=== PATIENT | male | born 1990 | race Caucasian/White ===

== ENCOUNTER 2020-10-13 18:24 | Emergency (ER) | payer OTHER, MEDICAID, SELFPAY ==
[2020-10-13 18:25] VITALS: BP 182/83; PULSE 119; RESP 15; TEMP 37.1; O2SAT 96; BMI 21.7
--- NOTE | 2020-10-13 18:34 | DI.CT.S_ITS ---
PROCEDURE: CT HEAD/BRAIN WO CON INDICATIONS: fall 1st time seizure with head injury TECHNIQUE: Noncontrast 4.5 mm thick angled axial sections acquired from the foramen magnum to the vertex, with coronal and sagittal reformats. For radiation dose reduction, the following was used: automated exposure control, adjustment of mA and/or kV according to patient size. COMPARISON: None. FINDINGS: Image quality: Excellent. CSF spaces: Basal cisterns are patent. No extra-axial fluid collections. Ventricles are normal in size and shape. Brain: No midline shift. No intracranial masses or hemorrhage. Mcgarry-white matter interface is normal. Skull and face: Small scalp hematoma at the vertex. Calvarium and visualized facial bones are intact, without suspicious lesions. Sinuses: Visualized sinuses and mastoids are clear. IMPRESSION: No acute intracranial abnormality. Small scalp hematoma at the vertex. Dictated by: Solis Hernandez M.D. on 10/13/2020 at 19:13 Approved by: Solis Hernandez M.D. on 10/13/2020 at 19:14
[2020-10-13 18:49] LABS: Add Manual Diff / Slide Review NO; Basophils Absolute Auto 0 /uL (0-100); Basophils Percent Auto 0.9 % (0-2); Eosinophils Absolute Auto 0 /uL (0-450); Hematocrit 41.6 % (41-53); Lymphocytes Absolute Auto 300 /uL (1100-4500); Lymphocytes Percent Auto 5.4 % (25-40); Mean Corpuscular HGB Conc 33.6 % (30-36); Mean Corpuscular Hemoglobin 35.2 PG (26-34); Mean Corpuscular Volume 104.6 fL (80-100); Monocytes Absolute Auto 400 /uL (0-900); Monocytes Percent Auto 7.3 % (3-14); Neutrophils Absolute Auto 4500 /uL (1500-7000); Neutrophils Percent Auto 86.4 % (50-75); Platelet Count 80 X10^3/uL (150-400); Red Blood Cell Count 3.97 X10^6/uL (4.5-5.9); White Blood Cell Count 5.2 X10^3/uL (4.5-11.0)
[2020-10-13] MEDS: SODIUM CHLORIDE 0.9% 1,000 ML 1000 ML IV (18:54)
[2020-10-13 19:01] LABS: Alanine Aminotransferase 312 IU/L (<50); Albumin 5.3 g/dL (3.5-5.0); Albumin Globulin Ratio 1.7 (1.0-2.8); Alkaline Phosphatase 100 U/L (38-126); Aspartate Aminotransferase 532 IU/L (17-59); BUN Creatinine Ratio 9.4 (6-22); Blood Urea Nitrogen 10 mg/dL (9-20); Calcium 9.4 mg/dL (8.4-10.2); Carbon Dioxide 12 mmol/L (22-32); Chloride 100 mmol/L (98-107); Estimated Glomerular Filt Rate > 60.0 mL/min (>60); Ethanol (ETOH) 99 mg/dL; Globulin 3.2 g/dL (1.7-4.1); Glucose 101 mg/dL (70-100); HEMOLYSIS < 15 (0-50); Lipase 229 U/L (23-300); Potassium 3.8 mmol/L (3.4-5.1); Sodium 140 mmol/L (137-145); Total Protein 8.5 g/dL (6.3-8.2)
[2020-10-13 19:17] LABS: Prolactin 24.8 ng/mL (3.7-17.9)
--- NOTE | 2020-10-13 19:28 | ED.SEIZURE ---
HPI - Seizure General Chief Complaint: Seizure Stated Complaint: Seizure Time Seen by Provider: 10/13/20 18:33 Source: family and EMS Mode of arrival: EMS Limitations: no limitations History of Present Illness HPI Narrative: Patient is a 30-year-old male without a history of seizures who is brought to the emergency department by EMS for evaluation of seizure-like activity. Is reported that the patient was at work where he had a seizure. The patient states that he does remember being at work and then having an episode where he blacked out the next thing that he remembers people were standing around him. The time my evaluation he reports no symptoms. Does have a slight headache where he hit his head on the top. No neck pain. No other injuries from the event. Patient states he has never had a seizure in the past. Prior to the seizure never had chest pain or shortness of breath. No belly pain. No recent travel peer Related Data Allergies Allergy/AdvReac Type Severity Reaction Status Date / Time No Known Drug Allergies Allergy Verified 10/13/20 21:18 Review of Systems Constitutional Constitutional: Reports headache(s) Eyes Eyes: Reports system reviewed and no additional complaints, except as documented ENT Ears, Nose, Mouth, and Throat: Reports headache(s) and Denies neck pain Cardiovascular Cardiovascular: Reports system reviewed and no additional complaints, except as documented Respiratory Respiratory: Reports system reviewed and no additional complaints, except as documented Gastrointestinal Gastrointestinal: Reports system reviewed and no additional complaints, except as documented Genitourinary Genitourinary: Reports system reviewed and no additional complaints, except as documented Musculoskeletal Musculoskeletal: Denies back pain and Denies neck pain Integumentary/Breasts Skin/Breast: Reports system reviewed and no additional complaints, except as documented Neurologic Neurologic: Reports headache(s) Psychiatric Psychiatric: Reports system reviewed and no additional complaints, except as documented Endocrine Endocrine: Reports system reviewed and no additional complaints, except as documented Hematologic/Lymphatic On Anticoagulants: No Allergic/Immunologic Allergic/Immunologic: Reports system reviewed and no additional complaints, except as documented Patient History Medical History Healthy adult Social History Smoking Status: Unknown if ever smoked Smoking Status: Unknown if ever smoked alcohol intake frequency: a few times a week Substance Use Type: does not use Exam Initial Vital Signs Initial Vital Signs: Vital Signs Temperature 98.7 F 10/13/20 18:25 Pulse Rate 119 H 10/13/20 18:25 Respiratory Rate 15 10/13/20 18:25 Blood Pressure 182/83 H 10/13/20 18:25 Pulse Oximetry 96 10/13/20 18:25 Const General: cooperative and healthy appearing [facility] Head: contusion (Vertex of head. No active bleeding.) Eyes General: appearance normal, both eyes and all related structures Neck Neck: normal visual inspection Chest Chest: No tenderness Resp Effort & Inspection: normal respiratory effort Auscultation: clear to auscultation bilaterally Cardio Rate: tachycardic Rhythm: regular rhythm GI Inspection: normal to inspection Back/Spine/Pelvis Cervical Spine: No cervical spinal tenderness Skin General: no rashes or lesions noted Neuro General: patient alert, patient awake and moves all extremities Extrem General: normal to inspection and capillary refill normal Psych Appearance: grossly normal and well kempt Scores GCS [place] coma scale eye opening: Spontaneous [place] coma scale verbal response: Orientated [place] coma scale motor response: Obey commands [place] coma scale total score: 15 Course Orders Ordered: ED Orders 10/13/20 18:32 Complete Blood Count AUTO DIFF Stat Comprehensive Metabolic Panel Stat Ethanol (ETOH) Stat Lipase Stat Prolactin Stat 10/13/20 18:34 CT head/brain wo con Stat EKG-12 Lead Stat Discontinued Medications Sodium Chloride (Normal Saline 0.9%) 1,000 mls @ 1,000 mls/hr IV BOLUS ONE Stop: 10/13/20 19:32 Last Infusion: 10/13/20 20:08 Dose: 0 mls/hr Documented by: Admin: 10/13/20 18:54 Dose: 1,000 mls/hr Documented by: RAJ Vital Signs Vital signs: Vital Signs - 8 hr 10/13/20 18:25 10/13/20 20:09 Temperature 98.7 F Pulse Rate 119 H 105 H Respiratory Rate 15 20 Blood Pressure 182/83 H 157/101 H Pulse Oximetry 96 99 MDM - Seizure Lab Data Attestation: I reviewed the patient's lab results. Result diagrams: 10/13/20 18:32 10/13/20 18:32 Labs: Lab Results 10/13/20 10/13/20 Range/Units 18:32 18:32 WBC 5.2 (4.5-11.0) X10^3/uL RBC 3.97 L (4.5-5.9) X10^6/uL Hgb 14.0 (13.5-17.5) g/dL Hct 41.6 (41-53) % MCV 104.6 H (80-100) fL MCH 35.2 H (26-34) PG MCHC 33.6 (30-36) % RDW 13.0 (11.6-14.8) % Plt Count 80 L (150-400) X10^3/uL Neut % (Auto) 86.4 H (50-75) % Lymph % (Auto) 5.4 L (25-40) % [place] % (Auto) 7.3 (3-14) % Eos % (Auto) 0.0 L (2-4) % Baso % (Auto) 0.9 (0-2) % Neut # (Auto) 4500 (5123-3074) /uL Lymph # (Auto) 300 L (7729-3160) /uL [place] # (Auto) 400 (0-900) /uL Eos # (Auto) 0 (0-450) /uL Baso # (Auto) 0 (0-100) /uL Sodium 140 (137-145) mmol/L Potassium 3.8 (3.4-5.1) mmol/L Chloride 100 (98-107) mmol/L Carbon Dioxide 12 L (22-32) mmol/L BUN 10 (9-20) mg/dL Creatinine 1.06 (0.66-1.25) mg/dL Estimated GFR > 60.0 (>60) mL/min BUN/Creatinine Ratio 9.4 (6-22) Glucose 101 H (70-100) mg/dL Calcium 9.4 (8.4-10.2) mg/dL Total Bilirubin 1.0 (0.2-1.3) mg/dL AST 532 H (17-59) IU/L ALT 312 H (<50) IU/L Alkaline Phosphatase 100 (38-126) U/L Total Protein 8.5 H (6.3-8.2) g/dL Albumin 5.3 H (3.5-5.0) g/dL Globulin 3.2 (1.7-4.1) g/dL Albumin/Globulin Ratio 1.7 (1.0-2.8) Lipase 229 (23-300) U/L Prolactin 24.8 H (3.7-17.9) ng/mL Ethyl Alcohol 99 H ( - 10) mg/dL Point of Care Testing Glucose POC [address] scan - head: Radiologist's Impression: [address] [id number] Scan ReportSigned Patient: Remi Rivera GMR#: [id number]: 1990Acct:[id number]/Sex: 30 / MDate of Service: 10/13/20Loc: EDAccession Number: [id number] Procedure: CT head/brain wo con Ordering Provider: Tyrone Bruno D.O. PROCEDURE: CT HEAD/BRAIN WO CON INDICATIONS: fall 1st time seizure with head injury TECHNIQUE: Noncontrast 4.5 mm thick angled axial sections acquired from the foramen magnum to the vertex, with coronal and sagittal reformats. For radiation dose reduction, the following was used: automated exposure control, adjustment of mA and/or kV according to patient size. COMPARISON: None. FINDINGS: Image quality: Excellent. CSF spaces: Basal cisterns are patent. No extra-axial fluid collections. Ventricles are normal in size and shape. Brain: No midline shift. No intracranial masses or hemorrhage. Mcgarry-white matter interface is normal. Skull and face: Small scalp hematoma at the vertex. Calvarium and visualized facial bones are intact, without suspicious lesions. Sinuses: Visualized sinuses and mastoids are clear. IMPRESSION: No acute intracranial abnormality. Small scalp hematoma at the vertex. Dictated by: Solis Hernandez M.D. on 10/13/2020 at 19:13 Approved by: Solis Hernandez M.D. on 10/13/2020 at 19:14 ECG Data Attestation: I personally reviewed and interpreted this ECG as follows: Interpretation: Sinus tachycardia Ventricular rate 111 Normal axis Normal QRS Normal QTC No ST T wave changes MDM Narrative Medical decision making narrative: Patient's head CT is unremarkable. His labs are unremarkable except for an elevated alcohol level. When I confronted the patient about this he stated that he was not drunk. He stated that he is unsure as to why was elevated because he has not drank in over 24 hours. He was no other signs of infection. Have a high suspicion that his seizure today is related to alcohol withdrawal as he was somewhat shaky. Had a discussion with him regarding this. Plan will be is to discharge home. Will hold on any seizure medication. He was instructed that he cannot drive for the next 6 months and until he has been cleared by his primary doctor or a neurologist. We did discuss his alcohol use and how he should try to cut back on the alcohol use as this is most likely the cause of his symptoms today. He expressed understanding and agreement this plan. Discharge Plan Departure Patient Disposition: Home Clinical Impression: Seizure-like activity, Alcohol intoxication Instructions: Alcohol Use Disorder, DI for Seizure (Not Epilepsy/Seizure Disorder) Activity Restrictions/Additional Instructions: Your head CT and labs today are unremarkable. It your alcohol level today is above the legal limit for driving. Given your presentation today and the concern that you had a seizure you are not to drive for the next 6 months and until your either cleared by your primary doctor or a neurologist. You can contact the health resource management specialist here at the hospital at [phone]. This individual can help you establish a primary doctor. Return to the emergency department for any new or worsening symptoms.
[2020-10-13 20:09] VITALS: BP 157/101; PULSE 105; RESP 20; O2SAT 99
== END 2020-10-13 20:09 | disposition home or self-care (01) ==
PROVIDERS: Emergency Provider Emergency Medicine
DX: R56.9 Unspecified convulsions (principal); F10.129 Alcohol abuse with intoxication, unspecified; Y90.4 Blood alcohol level of 80-99 mg/100 ml; S09.90XA Unspecified injury of head, initial encounter; R00.0 Tachycardia, unspecified
CPT/HCPCS: 36415; 70450; 80053; 80320; 83690; 84146; 85025; 93005; 99284

== ENCOUNTER 2020-10-13 21:11 | Inpatient (IN) | payer OTHER, MEDICAID, SELFPAY ==
[2020-10-13] VITALS (8 sets, daily range): BP systolic 117–146; BP diastolic 78–93; PULSE 105–124; RESP 14–29; TEMP 37; O2SAT 95–99
[2020-10-13] MEDS: LORazepam 2 MG/ML INJ IV (21:15)
--- NOTE | 2020-10-13 21:16 | ED.GENADULT ---
HPI - General Adult General Chief complaint: Seizure Stated complaint: Seizure Time Seen by Provider: 10/13/20 21:15 Source: patient Mode of arrival: EMS History of Present Illness HPI narrative: Patient is a 30-year-old male who I just evaluated and discharged from the emergency department after having a new onset seizure. His alcohol level was also elevated. Was discharged home and as he was sitting in the waiting room waiting for his ride to come pick him up he had a another seizure. It was self-limiting. By the time I evaluated the patient he was no longer postictal. The seizure was witnessed by nursing staff. Patient states he does not remember the event. Related Data Home Medications Medication Instructions Recorded Confirmed bupropion HCl 150 mg 24 hr tablet, 150 mg PO DAILY 10/14/20 10/14/20 extended release (Wellbutrin XL) Allergies Allergy/AdvReac Type Severity Reaction Status Date / Time No Known Drug Allergies Allergy Verified 10/13/20 21:18 Review of Systems Constitutional Comments: Slight headache Eyes Comments: No vision changes ENT Comments: No mouth over tongue pain Cardiovascular Comments: No chest pain Respiratory Comments: No shortness of breath Gastrointestinal Comments: No abdominal pain nausea vomiting Musculoskeletal Comments: No extremity pain Integumentary/Breasts Comments: No rashes Neurologic Comments: Seizure-like activity Psychiatric Psychiatric: Reports system reviewed and no additional complaints, except as documented Hematologic/Lymphatic On Anticoagulants: No Allergic/Immunologic Allergic/Immunologic: Reports system reviewed and no additional complaints, except as documented Patient History Medical History ADHD Anxiety disorder Healthy adult Surgical History (Updated 10/14/20 @ 04:17 by OLIVA Strauss) No history of previous surgery Family History (Updated 10/14/20 @ 04:18 by OLIVA Strauss) Father Alcoholism Mother Alive and well Social History household members: significant other Smoking Status: Unknown if ever smoked alcohol intake: current Smoking Status: Unknown if ever smoked alcohol intake frequency: a few times a week Substance Use Type: does not use Exam Initial Vital Signs Initial Vital Signs: Vital Signs Temperature 98.6 F 10/13/20 21:18 Pulse Rate 124 H 10/13/20 21:18 Respiratory Rate 18 10/13/20 21:18 Blood Pressure 146/88 H 10/13/20 21:18 Pulse Oximetry 95 10/13/20 21:18 Const General: cooperative, comfortable and well groomed [facility] Head: normal to inspection and normocephalic Eyes General: appearance normal, both eyes and all related structures Resp Effort & Inspection: normal respiratory effort Auscultation: clear to auscultation bilaterally Cardio Rate: tachycardic Rhythm: regular rhythm GI Inspection: normal to inspection Palpation: soft Back/Spine/Pelvis Back: No back tenderness Skin General: no rashes or lesions noted Neuro General: patient alert, patient awake, patient oriented x3 and moves all extremities Other: Very tremulous Extrem General: normal to inspection and capillary refill normal Psych Appearance: grossly normal and well kempt Course Orders Ordered: ED Orders 10/14/20 01:25 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) Stat Complete Blood Count AUTO DIFF Stat Comprehensive Metabolic Panel Stat Ethanol (ETOH) Stat Lipase Stat 10/14/20 02:35 Urine Drug Screen, Rapid Stat Acetaminophen (Acetaminophen 325 Mg Tablet) 650 mg PO Q6HR PRN PRN Reason: Fever/Mild Pain (1-3) Last Admin: 10/14/20 04:00 Dose: 650 mg Documented by: NANNETTE Enoxaparin Sodium (Enoxaparin 40 Mg/0.4 Ml Syringe) 40 mg SUBCUT DAILY [facility] Folic Acid (Folic Acid 1 Mg Tablet) 1 mg PO DAILY [facility] Last Admin: 10/14/20 02:58 Dose: 1 mg Documented by: JACQUELINE Sodium Chloride (Normal Saline 0.9%) 1,000 mls @ 100 mls/hr IV CONT BRITT Last Admin: 10/14/20 03:40 Dose: 100 mls/hr Documented by: NANNETTE Levetiracetam (Levetiracetam 250 Mg Tablet) 500 mg PO BID BRITT Lorazepam (Lorazepam 2 Mg/Ml Inj) 0 mg IV CIWAPRN PRN; Protocol PRN Reason: Alcohol Withdrawal Last Admin: 10/14/20 03:48 Dose: 1 mg Documented by: NANNETTE Multivitamins (Multivitamin 1 Tablet) 1 tab PO DAILY [facility] Last Admin: 10/14/20 02:58 Dose: 1 tab Documented by: JACQUELINE Naloxone HCl (Naloxone 0.4 Mg/Ml Vial) 0.2 mg IV Q2MIN PRN PRN Reason: Opiate Reversal Ondansetron HCl (Ondansetron 4 Mg/2 Ml Inj) 4 mg IV Q6HR PRN PRN Reason: Nausea And Vomiting Thiamine HCl (Thiamine 100 Mg Tablet) 100 mg PO DAILY BRITT Stop: 10/16/20 09:01 Last Admin: 10/14/20 02:58 Dose: 100 mg Documented by: JACQUELINE Discontinued Medications Chlordiazepoxide HCl (Chlordiazepoxide 25 Mg Capsule) 25 mg PO NOW ONE Stop: 10/14/20 00:41 Last Admin: 10/14/20 00:49 Dose: 25 mg Documented by: JACQUELINE Levetiracetam 1,000 mg/ Sodium (Chloride) 110 mls @ 440 mls/hr IV NOW ONE Stop: 10/13/20 21:16 Last Infusion: 10/13/20 21:56 Dose: 0 mls/hr Documented by: Admin: 10/13/20 21:29 Dose: 440 mls/hr Documented by: ELENA Lorazepam (Lorazepam 2 Mg/Ml Inj) 2 mg IV NOW ONE Stop: 10/13/20 21:45 Last Admin: 10/13/20 21:15 Dose: 2 mg Documented by: ELENA Lorazepam (Lorazepam 2 Mg/Ml Inj) 1 mg IV NOW ONE Stop: 10/14/20 01:52 Last Admin: 10/14/20 02:10 Dose: 1 mg Documented by: JACQUELINE Vital Signs Vital signs: Vital Signs - 8 hr 10/13/20 21:18 10/13/20 22:00 10/13/20 22:16 Temperature 98.6 F Pulse Rate 124 H 116 H 111 H Respiratory Rate 18 14 20 Blood Pressure 146/88 H 117/80 Pulse Oximetry 95 96 10/13/20 22:30 10/13/20 22:45 10/13/20 23:00 Temperature Pulse Rate 111 H 108 H 108 H Respiratory Rate 20 18 29 H Blood Pressure 126/78 131/81 137/88 Pulse Oximetry 95 98 99 10/13/20 23:15 10/13/20 23:30 10/14/20 00:00 Temperature Pulse Rate 105 H 105 H 113 H Respiratory Rate 17 21 20 Blood Pressure 146/93 H 140/90 144/73 H Pulse Oximetry 97 97 96 10/14/20 00:15 10/14/20 00:45 10/14/20 01:15 Temperature Pulse Rate 108 H 103 H 110 H Respiratory Rate 16 19 18 Blood Pressure 130/70 139/59 L 143/90 H Pulse Oximetry 96 97 96 Medical Decision Making Lab Data Lab results reviewed: Yes I reviewed the patient's lab results. Result diagrams: 10/14/20 01:25 10/14/20 01:25 Labs: Lab Results 10/14/20 10/14/20 10/14/20 Range/Units 01:25 01:25 01:25 WBC 8.5 D (4.5-11.0) X10^3/uL RBC 4.03 L (4.5-5.9) X10^6/uL Hgb 14.0 (13.5-17.5) g/dL Hct 41.5 (41-53) % MCV 102.8 H (80-100) fL MCH 34.6 H (26-34) PG MCHC 33.7 (30-36) % RDW 13.0 (11.6-14.8) % Plt Count 76 L (150-400) X10^3/uL Neut % (Auto) 88.8 H (50-75) % Lymph % (Auto) 2.3 L (25-40) % [place] % (Auto) 8.2 (3-14) % Eos % (Auto) 0.0 L (2-4) % Baso % (Auto) 0.7 (0-2) % Neut # (Auto) 7500 H (7281-3555) /uL Lymph # (Auto) 200 L (6807-8435) /uL [place] # (Auto) 700 (0-900) /uL Eos # (Auto) 0 (0-450) /uL Baso # (Auto) 100 (0-100) /uL Sodium 137 (137-145) mmol/L Potassium 3.6 (3.4-5.1) mmol/L Chloride 99 (98-107) mmol/L Carbon Dioxide 20 L (22-32) mmol/L BUN 10 (9-20) mg/dL Creatinine 0.81 (0.66-1.25) mg/dL Estimated GFR > 60.0 (>60) mL/min BUN/Creatinine Ratio 12.3 (6-22) Glucose 98 (70-100) mg/dL Calcium 9.5 (8.4-10.2) mg/dL Total Bilirubin 1.4 H (0.2-1.3) mg/dL AST 414 H (17-59) IU/L ALT 327 H (<50) IU/L Alkaline Phosphatase 84 (38-126) U/L Total Protein 8.4 H (6.3-8.2) g/dL Albumin 5.1 H (3.5-5.0) g/dL Globulin 3.3 (1.7-4.1) g/dL Albumin/Globulin Ratio 1.5 (1.0-2.8) Lipase 143 (23-300) U/L Ethyl Alcohol < 10 ( - 10) mg/dL SARS-CoV-2 (PCR) Negative (Negative) MDM Narrative Medical decision making narrative: Patient was given Ativan. Was also given Keppra. Patient was very tremulous. He also had a CIWA score of 17 during his stay. I have a very high suspicion that his symptoms today are alcohol withdrawal related and not an underlying seizure/epilepsy disorder. I do not feel that we need to repeat his head CT. Had a discussion with him regarding his alcohol use. He does change back and forth this time how often he drinks alcohol. Has been anywhere from 3 to 4 times a day to ?not very often ?his last drink according to him was the day before yesterday. His alcohol level during his last visit was 99. Had a discussion with him regarding his options. Informed him that if he would like help with regard to his alcohol use that we would be happy to assist him with this. If he was not interested in any rehab for detox than we would discharge him home with follow-up instructions. He stated that he was willing to get help for his alcohol use. I did discuss the case with JENNIFER walter [facility] provider who will admit for further evaluation and treatment. Discharge Plan Departure Patient Disposition: Admitted As Inpatient Clinical Impression: Alcohol withdrawal Admit Date/Time: 10/14/20 02:00 Admit Provider: Shu Walter
[2020-10-13] MEDS: levETIRAcetam 1,000 MG in SODIUM CHLORIDE 0.9% 100 ML 440 ML IV (21:29)
[2020-10-14] VITALS (16 sets, daily range): BP systolic 122–163; BP diastolic 59–102; PULSE 90–113; RESP 15–21; TEMP 36.2–36.8; O2SAT 96–100; BMI 17.2
--- NOTE | 2020-10-14 00:38 | PC.NURSE ---
MD at bedside to discuss plan of care
[2020-10-14] MEDS: chlordiazePOXIDE 25 MG CAPSULE PO (00:49)
[2020-10-14 01:33] LABS: Add Manual Diff / Slide Review NO; Basophils Absolute Auto 100 /uL (0-100); Basophils Percent Auto 0.7 % (0-2); Eosinophils Absolute Auto 0 /uL (0-450); Hematocrit 41.5 % (41-53); Lymphocytes Absolute Auto 200 /uL (1100-4500); Lymphocytes Percent Auto 2.3 % (25-40); Mean Corpuscular HGB Conc 33.7 % (30-36); Mean Corpuscular Hemoglobin 34.6 PG (26-34); Mean Corpuscular Volume 102.8 fL (80-100); Monocytes Absolute Auto 700 /uL (0-900); Monocytes Percent Auto 8.2 % (3-14); Neutrophils Absolute Auto 7500 /uL (1500-7000); Neutrophils Percent Auto 88.8 % (50-75); Platelet Count 76 X10^3/uL (150-400); Red Blood Cell Count 4.03 X10^6/uL (4.5-5.9); White Blood Cell Count 8.5 X10^3/uL (4.5-11.0)
[2020-10-14 01:41] LABS: Alanine Aminotransferase 327 IU/L (<50); Albumin 5.1 g/dL (3.5-5.0); Albumin Globulin Ratio 1.5 (1.0-2.8); Alkaline Phosphatase 84 U/L (38-126); Aspartate Aminotransferase 414 IU/L (17-59); BUN Creatinine Ratio 12.3 (6-22); Bilirubin Total 1.4 mg/dL (0.2-1.3); Blood Urea Nitrogen 10 mg/dL (9-20); Calcium 9.5 mg/dL (8.4-10.2); Carbon Dioxide 20 mmol/L (22-32); Chloride 99 mmol/L (98-107); Estimated Glomerular Filt Rate > 60.0 mL/min (>60); Ethanol (ETOH) < 10 mg/dL; Globulin 3.3 g/dL (1.7-4.1); Glucose 98 mg/dL (70-100); HEMOLYSIS < 15 (0-50); Lipase 143 U/L (23-300); Potassium 3.6 mmol/L (3.4-5.1); Sodium 137 mmol/L (137-145); Total Protein 8.4 g/dL (6.3-8.2)
[2020-10-14] MEDS: LORazepam 2 MG/ML INJ 1 MG IV (02:10)
[2020-10-14 02:24] LABS: COVID19 - ADMIT (NP swab/PCR) Negative (Negative)
[2020-10-14 02:44] LABS: UR Morphine/Opiate cutoff 300 Negative (Negative); Ur Creatinine Normal (Normal); Ur Specific Gravity Normal (Normal); Urine Amphetamines Negative (Negative); Urine Barbiturates Negative (Negative); Urine Benzodiazepines Positive (Negative); Urine Cocaine Negative (Negative); Urine MDMA Negative (Negative); Urine Methadone Negative (Negative); Urine Methamphetamines Negative (Negative); Urine Oxycodone Negative (Negative); Urine Phencyclidine Negative (Negative); Urine Tetrahydrocannabinol Negative (Negative); Urine Tricyclic Antidepressant Negative (Negative); Urine pH Normal (Normal)
[2020-10-14] MEDS: FOLIC ACID 1 MG TABLET PO ×2 (02:58→08:05)
[2020-10-14] MEDS: MULTIVITAMIN 1 TABLET 1 TAB PO ×2 (02:58→08:05)
[2020-10-14] MEDS: THIAMINE 100 MG TABLET PO ×2 (02:58→08:06)
[2020-10-14] MEDS: SODIUM CHLORIDE 0.9% 1,000 ML 100 ML IV (03:40)
[2020-10-14] MEDS: LORazepam 2 MG/ML INJ IV ×4 (03:48→15:43)
[2020-10-14] MEDS: ACETAMINOPHEN 325 MG TABLET 650 MG PO (04:00)
--- NOTE | 2020-10-14 04:09 | PM.HP.1 ---
History of Present Illness History of Present Illness Date Patient Seen: 10/14/20 Time Patient Seen: 04:09 Chief complaint: Seizure Narrative: Remi Rivera is 30-year-old male being treated for ADHD and depression earlier on 10/13 while at work fell, hit his head, and with his coworkers noticed that he was having a seizure. He was attended to by EMS who brought him to [facility] for further evaluation. He was evaluated in the ER and underwent CT of the head which only identified having a small scalp hematoma at the vertex. At that time his alcohol level was noted to be 99. He was offered to stay for alcohol detox however he declined, requesting that a friend come and pick him up. While waiting in the waiting area, he was witnessed to have had another seizure and brought back into the emergency department. Per the emergency department provider he was not very forthcoming about his alcohol use. He is very vague about how much she uses but it appears that he drinks almost daily usually hard liquor. Per his report he had had more than his usual amount of alcohol and had not had any since 2 days ago.He does state that he has a headache, he feels lightheaded, he denies any visual changes, he denies a prior history of seizures, he states that he is hungry but he is nauseous. In the ED, he was given a loading dose of IV keppra. Patient is afebrile with a blood pressure 163/102, heart rate 100, respiratory rate 20, oxygen saturation 99% on room air, he weighs 57.5 kg with a BMI of his CBC is generally within normal limits except for platelet count of 76 he has a slight left shift of 7500, bicarb is 20, total bilirubin is 1.4, AST 414, ALT 327, UDS tox screen was generally negative with exception of benzodiazepines however that test was done after he had been given Ativan, current alcohol level is less than 10 and COVID-19 PCR is negative. Patient History Medical History (Updated 10/14/20 @ 04:17 by OLIVA Strauss) ADHD Anxiety disorder Healthy adult Surgical History (Updated 10/14/20 @ 04:17 by OLIVA Strauss) No history of previous surgery Family & Social History Family History (Updated 10/14/20 @ 04:18 by OLIVA Strauss) Father Alcoholism Mother Alive and well Tobacco & Substance use: Smoking Status quit smoking 8 months ago alcohol intake frequency a few times almost daily, plus binges Substance Use Type does not use Meds Home Medications and Allergies Home Medications Medication Instructions Recorded Confirmed Type bupropion HCl 150 mg 24 hr tablet, mg PO DAILY 10/14/20 History extended release (Wellbutrin XL) Allergies Allergy/AdvReac Type Severity Reaction Status Date / Time No Known Drug Allergies Allergy Verified 10/13/20 21:18 Review of Systems Review of Systems ROS: Yes All systems reviewed with the patient and are negative except as otherwise documented Exam Vital Signs (past 8 hours): - 10/13/20 21:18 10/13/20 22:00 10/13/20 22:16 Temperature 98.6 F Pulse Rate 124 H 116 H 111 H Respiratory Rate 18 14 20 Blood Pressure 146/88 H 117/80 Pulse Oximetry 95 96 10/13/20 22:30 10/13/20 22:45 10/13/20 23:00 Temperature Pulse Rate 111 H 108 H 108 H Respiratory Rate 20 18 29 H Blood Pressure 126/78 131/81 137/88 Pulse Oximetry 95 98 99 10/13/20 23:15 10/13/20 23:30 10/14/20 00:00 Temperature Pulse Rate 105 H 105 H 113 H Respiratory Rate 17 21 20 Blood Pressure 146/93 H 140/90 144/73 H Pulse Oximetry 97 97 96 10/14/20 00:15 10/14/20 00:45 10/14/20 01:15 Temperature Pulse Rate 108 H 103 H 110 H Respiratory Rate 16 19 18 Blood Pressure 130/70 139/59 L 143/90 H Pulse Oximetry 96 97 96 10/14/20 03:54 10/14/20 03:55 Temperature 98.0 F Pulse Rate 101 H 100 H Respiratory Rate 16 20 Blood Pressure 163/102 H 163/102 H Pulse Oximetry 99 Oxygen Delivery Method Room Air Oxygen Flow Rate 0 Narrative Exam Narrative: Gen: Alert, oriented, well-developed 30 y.o. male, very lethargic HEENT: normocephalic, atraumatic, conjunctiva clear, sclera non-icteric, oral mucosa pink and moist Neck: supple, full ROM, no JVD, trachea is midline Resp: Lungs CTA, non-labored breathing CV: RRR, no murmur or rubs Abd: soft, non-tender, normoactive BTs Skin: no lesions or rashes, dry and intact Neuro: Tremulous and restless. Impulsive, but is oriented X 4 w/no focal deficits. Speech clear and coherent. Extremities: moves all 4 extremities, is ambulatory, negative Juni?s sign Psyche: Anxious Objective Labs Result Diagrams: 10/14/20 01:25 10/14/20 01:25 Labs: Laboratory Results - last 24 hr 10/14/20 10/14/20 10/14/20 01:25 01:25 01:25 WBC 8.5 D RBC 4.03 L Hgb 14.0 Hct 41.5 MCV 102.8 H MCH 34.6 H MCHC 33.7 RDW 13.0 Plt Count 76 L Neut % (Auto) 88.8 H Lymph % (Auto) 2.3 L [place] % (Auto) 8.2 Eos % (Auto) 0.0 L Baso % (Auto) 0.7 Neut # (Auto) 7500 H Lymph # (Auto) 200 L [place] # (Auto) 700 Eos # (Auto) 0 Baso # (Auto) 100 Sodium 137 Potassium 3.6 Chloride 99 Carbon Dioxide 20 L BUN 10 Creatinine 0.81 Estimated GFR > 60.0 BUN/Creatinine Ratio 12.3 Glucose 98 Calcium 9.5 Total Bilirubin 1.4 H AST 414 H ALT 327 H Alkaline Phosphatase 84 Total Protein 8.4 H Albumin 5.1 H Globulin 3.3 Albumin/Globulin Ratio 1.5 Lipase 143 U Opiates 300ng/mL cut Ur Oxycodone Screen Urine Methadone Screen Ur Barbiturates Screen U Tricyclic Antidepress Ur Phencyclidine Scrn Ur Amphetamines Screen U Methamphetamines Scrn Ur MDMA Scrn (Ecstasy) U Benzodiazepines Scrn Urine Cocaine Screen U Marijuana (THC) Screen Ethyl Alcohol < 10 SARS-CoV-2 (PCR) Negative 10/14/20 02:35 WBC RBC Hgb Hct MCV MCH MCHC RDW Plt Count Neut % (Auto) Lymph % (Auto) [place] % (Auto) Eos % (Auto) Baso % (Auto) Neut # (Auto) Lymph # (Auto) [place] # (Auto) Eos # (Auto) Baso # (Auto) Sodium Potassium Chloride Carbon Dioxide BUN Creatinine Estimated GFR BUN/Creatinine Ratio Glucose Calcium Total Bilirubin AST ALT Alkaline Phosphatase Total Protein Albumin Globulin Albumin/Globulin Ratio Lipase U Opiates 300ng/mL cut Negative Ur Oxycodone Screen Negative Urine Methadone Screen Negative Ur Barbiturates Screen Negative U Tricyclic Antidepress Negative Ur Phencyclidine Scrn Negative Ur Amphetamines Screen Negative U Methamphetamines Scrn Negative Ur MDMA Scrn (Ecstasy) Negative U Benzodiazepines Scrn Positive H Urine Cocaine Screen Negative U Marijuana (THC) Screen Negative Ethyl Alcohol SARS-CoV-2 (PCR) Assessment & Plan Assessment & Plan narrative: Remi Rivera will be admitted to the ICU for alcohol withdrawal seizures. 1. Alcoholic seizure in the setting of acute alcohol withdrawal, present on admission He will have IV fluids, NS at 100 ml/hour His CIWA scale in the ED was 17, and 8 as of 0200, repeat CIWA q 4 hours along with vitals He will receive IV keppra 500 mg po bid IV ativan 2 mg per CIWA protocol 2. ADHD currently taking bupropion per his home med chart, he was prescribed bupropione 150 transitioning from once daily There is a contraindication/caution for abrupt withdrawal, caution for alcohol use, raises the seizure threshold. Consideration will need to be made whether to discontinue this medication 3. Elevated transaminases, unknown if acute bupropion is contraindicated in hepatic impairment VTE Prophylaxis: Wells risk score 1.5 X Bilateral SCDs Patient is admitted to the inpatient ICU service due to the severity of disease, risks of further disease progression and this stay is expected to exceed 2 midnights. FEN: IV fluids: NS at 100 ml/hour, diet: general, labs: CBC, BMP, Mag, and daily liver enzymes Code status: Full code as discussed with the patient who identifies S/O as Karolina Tran who is also his surrogate and POA. Her number is [phone]. I have utilized all available resources (patient, family member, internal and external medical records) at the time of admission to identify the patient?s current home medications that should be continued or held. COVID-19 COVID-19 status: Negative Result date/Date tested (Pos, Neg/Pending): 10/14/20 Scores GCS [place] coma scale eye opening: Spontaneous [place] coma scale verbal response: Orientated [place] coma scale motor response: Obey commands [place] coma scale total score: 15 Wells' Criteria for PE Clinical signs and symptoms of DVT: No PE is #1 Dx or equally likely: No Heart rate > 100: Yes Immobilization at least 3 days or surg in previous 4 weeks: No History of PE or DVT: No Hemoptysis: No Malignancy w/Treatment within 6 months or palliative: No Wells' PE Score total: 1.5 Quality VTE Deep Vein Thrombosis/Pulmonary Embolism Present on Admission: No MIPS - Admit I confirm the patient?s Advance Care Plan is present, Code status is documented, Surrogate decision maker is in patient?s record [If Yes, STOP here]: Yes
[2020-10-14 06:25] LABS: Alanine Aminotransferase 298 IU/L (<50); Albumin 4.8 g/dL (3.5-5.0); Albumin Globulin Ratio 1.7 (1.0-2.8); Alkaline Phosphatase 76 U/L (38-126); Aspartate Aminotransferase 340 IU/L (17-59); Bilirubin Total 1.4 mg/dL (0.2-1.3); Globulin 2.8 g/dL (1.7-4.1); HEMOLYSIS < 15 (0-50); Total Protein 7.6 g/dL (6.3-8.2)
--- NOTE | 2020-10-14 06:28 | PC.NURSE ---
Pt. arrived to the unit from ER via wheelchair. Pt. is alert and oriented but is drowsy, dozing off while being ask questions but is pleasant and appropriate. Seizure pads applied and oriented pt. to bed controls and call light use. Bed alarm activated. CIWA of 8, Ativan 1 given IV, reassessed with CIWA of 7. NS infusing at 100 ml/hr. Continue CIWA protocol.
[2020-10-14] MEDS: levETIRAcetam 250 MG TABLET 500 MG PO ×2 (08:05→20:58)
--- NOTE | 2020-10-14 10:52 | PC.NURSE ---
Upon change of shift, pt scored a 9 on CIWA scale. Per protocol, gave 1mg ativan IVP, reassessed in 15 minutes, and pt re-scored at CIWA of 7. Per alcohol withdrawal policy, will re-evaluate CIWA in four hours (since pt scored b/w 5-10) unless pt condition changes. Since receiving IV ativan at 0815, pt has been sleeping intermittently. Pt ambulated to restroom with assistance of staff once. Pt still tremulous, but otherwise HR and O2 have been stable and pt has not reported increasing/worsening of symptoms.
[2020-10-14] MEDS: chlordiazePOXIDE 10 MG CAPSULE 30 MG PO ×3 (11:18→23:50)
--- NOTE | 2020-10-14 13:43 | PC.NURSE ---
Patient woke up around 1130 for vital signs, reassessed CIWA score. Pt main symptoms are tremors of hands along with tingling to extremities. States headache and tingling/tremors feel like they have improved from this morning. CIWA score <8 with IV ativan and PO librium. at 1330, patient sleeping. Respirations appear even and unlabored. ED called stating patients significant other's dad was calling asking for pt updates. Pt asleep and I decided to let pt sleep vs waking him up at this time. Took phone number of acquaintance calling and will check with pt when he wakes up to ascertain if appropriate to give updates.
--- NOTE | 2020-10-14 15:04 | PC.NURSE ---
Pt gave verbal approval to give father of significant other, Damian, updates if asked.
[2020-10-15 04:32] VITALS: BP 132/95; PULSE 97; RESP 18; TEMP 36.2; O2SAT 100
[2020-10-15 05:14] LABS: Add Manual Diff / Slide Review NO; Basophils Absolute Auto 200 /uL (0-100); Basophils Percent Auto 4.1 % (0-2); Eosinophils Absolute Auto 100 /uL (0-450); Eosinophils Percent Auto 2.9 % (2-4); Hematocrit 43.1 % (41-53); Hemoglobin 14.7 g/dL (13.5-17.5); Lymphocytes Absolute Auto 500 /uL (1100-4500); Lymphocytes Percent Auto 10.8 % (25-40); Mean Corpuscular HGB Conc 34.1 % (30-36); Mean Corpuscular Hemoglobin 35.2 PG (26-34); Mean Corpuscular Volume 103.3 fL (80-100); Monocytes Absolute Auto 500 /uL (0-900); Monocytes Percent Auto 11.5 % (3-14); Neutrophils Absolute Auto 3200 /uL (1500-7000); Neutrophils Percent Auto 70.7 % (50-75); Platelet Count 69 X10^3/uL (150-400); Red Blood Cell Count 4.17 X10^6/uL (4.5-5.9); Red Cell Distribution Width 12.8 % (11.6-14.8); White Blood Cell Count 4.5 X10^3/uL (4.5-11.0)
[2020-10-15 05:28] LABS: Alanine Aminotransferase 244 IU/L (<50); Albumin 4.6 g/dL (3.5-5.0); Albumin Globulin Ratio 1.4 (1.0-2.8); Alkaline Phosphatase 78 U/L (38-126); Aspartate Aminotransferase 217 IU/L (17-59); BUN Creatinine Ratio 13.7 (6-22); Bilirubin Total 1.5 mg/dL (0.2-1.3); Bilirubin Unconjugated 1.1 mg/dL (0.0-1.1); Blood Urea Nitrogen 10 mg/dL (9-20); Calcium 9.8 mg/dL (8.4-10.2); Carbon Dioxide 24 mmol/L (22-32); Chloride 98 mmol/L (98-107); Estimated Glomerular Filt Rate > 60.0 mL/min (>60); Globulin 3.2 g/dL (1.7-4.1); Glucose 74 mg/dL (70-100); HEMOLYSIS < 15 (0-50); Magnesium 1.9 mg/dL (1.6-2.3); Potassium 3.7 mmol/L (3.4-5.1); Sodium 137 mmol/L (137-145); Total Protein 7.8 g/dL (6.3-8.2)
[2020-10-15] MEDS: chlordiazePOXIDE 10 MG CAPSULE 30 MG PO (06:07)
[2020-10-15 08:00] VITALS: BP 124/87; PULSE 98; RESP 18; TEMP 36.7; O2SAT 99
[2020-10-15] MEDS: THIAMINE 100 MG TABLET PO (08:50)
[2020-10-15] MEDS: MULTIVITAMIN 1 TABLET 1 TAB PO (08:50)
[2020-10-15] MEDS: SODIUM CHLORIDE 0.9% FLUSH 10 ML IV (08:50)
[2020-10-15] MEDS: levETIRAcetam 250 MG TABLET 500 MG PO (08:50)
[2020-10-15] MEDS: FOLIC ACID 1 MG TABLET PO (08:50)
[2020-10-15] MEDS: LORazepam 1 MG TABLET PO (09:10)
[2020-10-15 09:50] VITALS: PULSE 90; RESP 18
[2020-10-15 12:00] VITALS: BP 143/78; PULSE 101; RESP 19; TEMP 36.8; O2SAT 99
--- NOTE | 2020-10-15 12:19 | P.DS_ITS ---
History of Present Illness History of Present Illness Date Patient Seen: 10/15/20 Time Patient Seen: 12:19 Chief complaint: Seizure Narrative: Per OLIVA Strauss: Remi Rivera is 30-year-old male being treated for ADHD and depression earlier on 10/13 while at work fell, hit his head, and with his coworkers noticed that he was having a seizure. He was attended to by EMS who brought him to [facility] for further evaluation. He was evaluated in the ER and underwent CT of the head which only identified having a small scalp hematoma at the vertex. At that time his alcohol level was noted to be 99. He was offered to stay for alcohol detox however he declined, requesting that a friend come and pick him up. While waiting in the waiting area, he was witnessed to have had another seizure and brought back into the emergency department. Per the emergency department provider he was not very forthcoming about his alcohol use. He is very vague about how much she uses but it appears that he drinks almost daily usually hard liquor. Per his report he had had more than his usual amount of alcohol and had not had any since 2 days ago.He does state that he has a headache, he feels lightheaded, he denies any visual changes, he denies a prior history of seizures, he states that he is hungry but he is nauseous. In the ED, he was given a loading dose of IV keppra. Patient is afebrile with a blood pressure 163/102, heart rate 100, respiratory rate 20, oxygen saturation 99% on room air, he weighs 57.5 kg with a BMI of his CBC is generally within normal limits except for platelet count of 76 he has a slight left shift of 7500, bicarb is 20, total bilirubin is 1.4, AST 414, ALT 327, UDS tox screen was generally negative with exception of benzodiazepines however that test was done after he had been given Ativan, current alcohol level is less than 10 and COVID- 19 PCR is negative. Discharge Providers Provider Date of admission: 10/14/20 02:00 Discharge Date: 10/15/20 Discharge provider: Amaury Alvarez DO Summary Hospital Course Discharge Diagnosis: 1. Alcohol withdrawal with seizure, acute, present on admission. 2. Alcoholic hepatitis 3. Anxiety and depression, chronic 4. ADHD, chronic Hospital Course: This is a 30-year-old male with a past medical history of anxiety and depression who was admitted after 2 witnessed seizures, most likely secondary to alcohol withdrawal. Patient had also been recently started on Wellbutrin which can lower seizure threshold and was discontinued. CT scan of his head was unremarkable. Patient had an uneventful course after being treated for alcohol withdrawal with small doses of Librium and Ativan given per [facility] protocol. His Librium was discontinued on the day of discharge and he was comfortable with minimal tremors. He was also given Keppra over the course of his hospital stay but given no history of seizures and the most likely cause being alcohol withdrawal, this does not need to be continued as an outpatient. Hepatitis panel is currently pending on the day of discharge, although his liver transaminase levels continue to down trend, these were most likely elevated in the setting of alcoholic hepatitis. I do recommend he follow-up with his primary care provider who recently started the patient on Wellbutrin for further management of his anxiety and depression. He was not interested in resources to help him stop drinking at this time. Time Spent with Patient Time spent: Greater than 30 minutes Exam Vital Signs (past 8 hours): - 10/15/20 04:32 10/15/20 08:00 10/15/20 09:50 Temperature 97.2 F L 98.1 F Pulse Rate 97 H 98 H 90 Respiratory Rate 18 18 18 Blood Pressure 132/95 H 124/87 Pulse Oximetry 100 99 10/15/20 12:00 Temperature 98.3 F Pulse Rate 101 H Respiratory Rate 19 Blood Pressure 143/78 H Pulse Oximetry 99 Oxygen Delivery Method Room Air Oxygen Flow Rate 0 Narrative Exam Narrative: Gen: Alert, oriented, well-developed 30 y.o. male, mildly tremulous but browsing his phone HEENT: normocephalic, atraumatic, conjunctiva clear, sclera non-icteric, oral mucosa pink and moist Neck: supple, full ROM, no JVD, trachea is midline Resp: Lungs CTA, non-labored breathing CV: RRR, no murmur or rubs Abd: soft, non-tender, normoactive BTs Skin: no lesions or rashes, dry and intact Neuro: Tremulous, minimally, oriented X 4 w/no focal deficits. Speech clear and coherent. Extremities: moves all 4 extremities, ambulatory without assistance Psyche: calm, cooperative. occasionaly anxiety Objective Labs Result Diagrams: 10/15/20 04:55 10/15/20 04:55 Labs: Laboratory Results - last 24 hr 10/15/20 10/15/20 04:55 04:55 WBC 4.5 RBC 4.17 L Hgb 14.7 Hct 43.1 MCV 103.3 H MCH 35.2 H MCHC 34.1 RDW 12.8 Plt Count 69 L Neut % (Auto) 70.7 Lymph % (Auto) 10.8 L [place] % (Auto) 11.5 Eos % (Auto) 2.9 Baso % (Auto) 4.1 H Neut # (Auto) 3200 Lymph # (Auto) 500 L [place] # (Auto) 500 Eos # (Auto) 100 Baso # (Auto) 200 H Sodium 137 Potassium 3.7 Chloride 98 Carbon Dioxide 24 BUN 10 Creatinine 0.73 Estimated GFR > 60.0 BUN/Creatinine Ratio 13.7 Glucose 74 Calcium 9.8 Magnesium 1.9 Total Bilirubin 1.5 H Conjugated Bilirubin 0.0 Unconjugated Bilirubin 1.1 AST 217 H ALT 244 H Alkaline Phosphatase 78 Total Protein 7.8 Albumin 4.6 Globulin 3.2 Albumin/Globulin Ratio 1.4 PFSH Medical History ADHD Anxiety disorder Healthy adult Surgical History (Updated 10/14/20 @ 04:17 by OLIVA Strauss) No history of previous surgery Family History (Updated 10/14/20 @ 04:18 by OLIVA Strauss) Father Alcoholism Mother Alive and well Social History household members: significant other Smoking Status: Unknown if ever smoked alcohol intake: current Discharge Plan Discharge Plan Patient Disposition: Home Provider Discharge Comment: You were admitted to the hospital after suffering two seizures likely due to alcohol withdrawal. I recommend stopping wellbutrin as this can lower seizure threshold if you continue to drink alcohol. You were not interested in resources for help with cessation at this time, do not hesitate to reach out for help if you need it. Discharge orders & Medications Prescriptions: Discontinued bupropion HCl [Wellbutrin XL] 150 mg tablet extended release 24 hr 150 mg PO DAILY RF: 0 Diet/Activity/Treatments Diet: Diet as Tolerated Activity: As tolerated Quality VTE Deep Vein Thrombosis/Pulmonary Embolism Present on Admission: No
--- NOTE | 2020-10-15 17:03 | PC.NURSE ---
patient with discharge orders. instructions and education went over and given to patient. Patient refused to be taken down in wheelchair. Hospital staff walked with patient to taxi.
[2020-10-15 17:25] LABS: Hepatitis B Surface Antigen NEGATIVE s/c (NEGATIVE)
[2020-10-15 17:28] LABS: Hep C Virus Ab w/Reflex Quant NEGATIVE s/c (NEGATIVE)
[2020-10-16 08:16] LABS: Hepatitis B Surf Ab Qualitativ Non Reactive (.)
[2020-10-16 08:16] LABS: Hepatitis B Core Antibody Negative (Negative)
== END 2020-10-15 17:04 | disposition home or self-care (01) | DRG 775 ==
LOC: ED 10-14 01:59 → ICU 10-14 13:08 → AC 10-15 15:18
PROVIDERS: Internal Medicine; Admitting Provider Nurse Practitioner Family; Emergency Provider Emergency Medicine; Referring Provider Emergency Medicine; Visit Provider Nurse Practitioner Family
DX: F10.239 Alcohol dependence with withdrawal, unspecified (principal); Y90.4 Blood alcohol level of 80-99 mg/100 ml; R56.9 Unspecified convulsions; K70.10 Alcoholic hepatitis without ascites; F90.9 Attention-deficit hyperactivity disorder, unspecified type; F41.9 Anxiety disorder, unspecified; F32.9 Major depressive disorder, single episode, unspecified; R74.01 Elevation of levels of liver transaminase levels; Z87.891 Personal history of nicotine dependence; Z20.822 Contact with and (suspected) exposure to COVID-19
CPT/HCPCS: 36415; 70450; 80048; 80053; 80076; 80305; 80320; 83690; 83735; 84146; 85025; 86704; 86706; 86803; 87340; 87635; 87797; 93005; 96365; 96375; 96376; 99284; C9803; J1953; J2060